=== PATIENT | female | born 1945 | race Caucasian/White ===

== ENCOUNTER 2021-05-25 12:12 | Outpatient (CLI) | payer MEDICARE | END 2021-05-25 12:13 | disposition home or self-care (01) | LOC: CSHMAMMO 12:12 | PROVIDERS: ATTEND Family Medicine | DX: Z12.31 Encounter for screening mammogram for malignant neoplasm of breast (principal); Z85.3 Personal history of malignant neoplasm of breast; Z98.890 Other specified postprocedural states | CPT/HCPCS: 77063; 77067 ==

== ENCOUNTER 2021-11-26 15:52 | Inpatient (IN) | payer MEDICARE, BC ==
[2021-11-26 16:56] LABS: #Basophils 0.2 10x3/uL (0.0-0.2); #Eosinphils 0.3 10x3/uL (0.0-0.5); #Monocytes 1.5 10x3/uL (0.0-1.1); #Neutrophils 12.5 10x3/uL (1.5-8.4); %Basophils 0.9 % (0.0-2.0); %Eosinophils 2.1 % (0.0-6.0); %Lymphocytes 9.8 % (18.0-47.0); %Monocytes 9.2 % (0.0-10.0); Hemoglobin 11.1 g/dL (12.0-15.5); Mean Corpuscular HGB CONC 32.2 g/dL (32.0-36.0); Mean Corpuscular Hemoglobin 29.4 pg (27.0-33.0); Mean Corpuscular Volume 91.5 fl (81.6-98.3); Mean Platelet Volume 12.1 fl (7.4-10.4); Platelet Count 346 10x3/uL (150-450); RBC Distribution Width 13.8 % (11.5-14.5); Red Blood Cell (RBC) Count 3.77 10x6/uL (3.90-5.03); White Blood Cell (WBC) Count 16.3 10x3/uL (3.5-10.5)
[2021-11-26 16:59] LABS: SARS-CoV-2 NAA Rapid Test Not Detected (NotDetected)
[2021-11-26 16:59] LABS: Bilirubin Neg (Negative); Blood, Urine Negative (Negative); Clarity Clear (Clear); Glucose, Urine (Dipstick) >=1000 mg/dL (Negative); Ketone, Urine 15 mg/dL (Negative); Leukocyte Negative (Negative); Nitrite Negative (Negative); Protein, Urine (Dipstick) Negative (Neg-Trace); Specific Gravity, Urine 1.005 (1.002-1.036); Urobilinogen Normal mg/dL (Less than 2)
[2021-11-26 17:11] LABS: ALT (SGPT) 46 U/L (8-55); AST (SGOT) 45 U/L (5-34); Albumin 3.6 g/dL (3.4-4.8); Alkaline Phosphatase 654 U/L (40-110); Anion Gap 21 mmol/L (10-20); BUN (Urea Nitrogen) 65 mg/dL (9.8-20.1); Bilirubin, Total 0.5 mg/dL (0.2-1.2); Calc. Creatinine Clearance 0 mL/min (70-130); Calcium 11.3 mg/dL (7.8-10.44); Carbon Dioxide 19 mmol/L (23-31); Chloride 85 mmol/L (98-107); Estimated GFR 30; Globulin 3.1 g/dL (2.4-3.5); Potassium 5.4 mmol/L (3.5-5.1); Protein, Total 6.7 g/dL (5.8-8.1); Sodium 120 mmol/L (136-145)
[2021-11-26 17:18] LABS: Glucose Greater than 800 mg/dL (83-110)
[2021-11-26 17:44] LABS: Lipase 67 U/L (8-78); Magnesium 1.9 mg/dL (1.6-2.6)
[2021-11-26] MEDS ORDERED: INSULIN REGULAR IN 0.9 % NACL 100 UNIT/100 ML BAG ONE (17:48)
[2021-11-26 17:52] LABS: Actual Bicarbonate (HCO3v) 23 mEq/L (22-28); Base Excess -2.8 mEq/L (-2.0 to +3.0); Calcium, Ionized (venous) 1.48 mmol/L (1.16-1.32); Chloride (VBG) 86 mmol/L (98-106); Hemoglobin (Hb) 12.1 g/dL (11.7-16.1); Potassium (VBG) 5.37 mmol/L (3.70-5.30); Puncture Site Other Site; RapidComm Collect By LAB TECH; pH (venous) 7.36 (7.32-7.43)
[2021-11-26 19:21] LABS: Glucose 738 mg/dL (83-110)
[2021-11-26] MEDS ORDERED: Ondansetron PF 4 MG/2 ML Vial IVP PRN (19:53)
[2021-11-26] MEDS ORDERED: Dextrose 50% Abboject 50 ML SYRINGE SLOW IVP PRN (19:53)
[2021-11-26] MEDS ORDERED: Dextrose 5% in Water 1,000 ML IV PRN (19:53)
[2021-11-26] MEDS ORDERED: Senokot S 8.6-50 MG TAB PO PRN (19:53)
[2021-11-26] MEDS ORDERED: Calcium Carbonate 500 MG ChewTAB PO PRN (19:53)
[2021-11-26] MEDS ORDERED: Acetaminophen 325 MG TAB PO PRN (19:53)
[2021-11-26] MEDS ORDERED: Zolpidem Tartrate 5 MG TAB PO PRN (19:53)
[2021-11-26] MEDS ORDERED: Guaifenesin DM 100-10/5 ML UDCUP PO PRN (19:53)
[2021-11-26 19:55] VITALS: BMI 24.8
[2021-11-26] MEDS ORDERED: Albuterol Sulfate 2.5 mg/3 ml Neb NEB PRN (20:00)
[2021-11-26] MEDS ORDERED: INSULIN REGULAR IN 0.9 % NACL 100 UNIT in Premix Bag 1 BAG IVPB SCH (20:00)
[2021-11-26] MEDS ORDERED: Lactated Ringer's 1,000 ML IV SCH (20:00)
[2021-11-26] MEDS ORDERED: Sodium Chloride 0.9% 1,000 ML IV SCH (20:15)
[2021-11-26 20:16] LABS: Phosphorus 2.2 mg/dL (2.3-4.7)
[2021-11-26 20:18] LABS: Anion Gap 20 mmol/L (10-20); BUN (Urea Nitrogen) 62 mg/dL (9.8-20.1); CK (CPK) 31 U/L (29-168); Calc. Creatinine Clearance 34 mL/min (70-130); Calcium 11.7 mg/dL (7.8-10.44); Carbon Dioxide 20 mmol/L (23-31); Chloride 91 mmol/L (98-107); Estimated GFR 37; Magnesium 1.9 mg/dL (1.6-2.6); Potassium 4.6 mmol/L (3.5-5.1); Sodium 126 mmol/L (136-145)
[2021-11-26 20:19] LABS: Glucose 720 mg/dL (83-110)
[2021-11-26] MEDS ORDERED: Amlodipine 5 MG TAB PO SCH (20:30)
[2021-11-26] MEDS ORDERED: Famotidine 20 MG TAB PO SCH (21:00)
[2021-11-26 21:12] LABS: Anion Gap 13 mmol/L (10-20); BUN (Urea Nitrogen) 55 mg/dL (9.8-20.1); CK (CPK) 29 U/L (29-168); Calc. Creatinine Clearance 41 mL/min (70-130); Calcium 11.2 mg/dL (7.8-10.44); Carbon Dioxide 23 mmol/L (23-31); Chloride 95 mmol/L (98-107); Estimated GFR 46; Glucose 542 mg/dL (83-110); Magnesium 1.7 mg/dL (1.6-2.6); Potassium 4.2 mmol/L (3.5-5.1); Sodium 127 mmol/L (136-145)
[2021-11-26] MEDS: Atorvastatin Calcium 10 MG TAB PO SCH (21:25)
[2021-11-26] MEDS ORDERED: Magnesium Sulfate/D5W 1 GM/100 ML BAG IVPB SCH (21:30)
[2021-11-26] MEDS ORDERED: Potassium Phosphate 30 MMOL in Sodium Chloride 0.9% 250 ML 250 ML IVPB SCH (21:30)
[2021-11-27 00:42] LABS: Anion Gap 16 mmol/L (10-20); BUN (Urea Nitrogen) 45 mg/dL (9.8-20.1); Calc. Creatinine Clearance 47 mL/min (70-130); Calcium 10.7 mg/dL (7.8-10.44); Carbon Dioxide 21 mmol/L (23-31); Chloride 99 mmol/L (98-107); Estimated GFR 54; Glucose 408 mg/dL (83-110); Potassium 4.4 mmol/L (3.5-5.1); Sodium 132 mmol/L (136-145)
[2021-11-27 05:33] LABS: #Basophils 0.1 10x3/uL (0.0-0.2); #Eosinphils 0.4 10x3/uL (0.0-0.5); #Monocytes 1.2 10x3/uL (0.0-1.1); #Neutrophils 10.2 10x3/uL (1.5-8.4); %Basophils 0.7 % (0.0-2.0); %Eosinophils 2.6 % (0.0-6.0); %Lymphocytes 12.4 % (18.0-47.0); %Neutrophils 74.9 % (40.0-75.0); Hemoglobin 9.9 g/dL (12.0-15.5); Mean Corpuscular HGB CONC 34.3 g/dL (32.0-36.0); Mean Corpuscular Hemoglobin 29.6 pg (27.0-33.0); Mean Corpuscular Volume 86.3 fl (81.6-98.3); Mean Platelet Volume 11.6 fl (7.4-10.4); Platelet Count 260 10x3/uL (150-450); RBC Distribution Width 13.2 % (11.5-14.5); Red Blood Cell (RBC) Count 3.35 10x6/uL (3.90-5.03); White Blood Cell (WBC) Count 13.6 10x3/uL (3.5-10.5)
[2021-11-27] MEDS: Levothyroxine Sodium 88 MCG TAB PO SCH (05:53)
[2021-11-27 06:03] LABS: Anion Gap 12 mmol/L (10-20); BUN (Urea Nitrogen) 38 mg/dL (9.8-20.1); Calc. Creatinine Clearance 48 mL/min (70-130); Calcium 10.2 mg/dL (7.8-10.44); Carbon Dioxide 22 mmol/L (23-31); Chloride 103 mmol/L (98-107); Estimated GFR 56; Glucose 392 mg/dL (83-110); Magnesium 1.9 mg/dL (1.6-2.6); Phosphorus 3.3 mg/dL (2.3-4.7); Potassium 4.3 mmol/L (3.5-5.1); Sodium 133 mmol/L (136-145)
[2021-11-27] MEDS: Amlodipine 5 MG TAB PO SCH (08:10)
[2021-11-27] MEDS: Pioglitazone HCl 15 MG TAB PO SCH (08:11)
[2021-11-27] MEDS: Enoxaparin Sodium 40 MG/0.4 ML SYRINGE SC SCH ×2 (08:11→08:45)
[2021-11-27] MEDS: Famotidine 20 MG TAB PO SCH (08:11)
[2021-11-27] MEDS: Alogliptin 6.25 MG TAB PO SCH (08:11)
[2021-11-27] MEDS: Sodium Chloride 0.9% 1,000 ML IV SCH ×2 (10:29→20:11)
[2021-11-27] MEDS: Mometasone/Formoterol 200/5 60 PUFF INH SCH ×2 (10:46→19:00)
[2021-11-27 13:00] LABS: Hemoglobin A1c Greater than 14.0 % (4.0-6.0)
[2021-11-27] MEDS ORDERED: Dextrose 50% Abboject 50 ML SYRINGE SLOW IVP PRN (15:54)
[2021-11-27] MEDS ORDERED: Dextrose 5% in Water 1,000 ML IV PRN (15:54)
[2021-11-27] MEDS: PARoxetine 20 MG TAB PO SCH (20:19)
[2021-11-27] MEDS: Atorvastatin Calcium 10 MG TAB PO SCH (20:19)
[2021-11-27] MEDS: HumaLOG 300 UNITS/3 ML VIAL SC PRN (20:23)
[2021-11-27] MEDS ORDERED: Lantus 1000 UNITS/10 ML VIAL SC SCH (21:00)
[2021-11-28] MEDS: HumaLOG 300 UNITS/3 ML VIAL SC PRN ×4 (06:16→21:15)
[2021-11-28] MEDS: Levothyroxine Sodium 88 MCG TAB PO SCH (06:16)
[2021-11-28 06:53] LABS: Anion Gap 13 mmol/L (10-20); BUN (Urea Nitrogen) 24 mg/dL (9.8-20.1); Calc. Creatinine Clearance 49 mL/min (70-130); Calcium 10.3 mg/dL (7.8-10.44); Carbon Dioxide 22 mmol/L (23-31); Chloride 102 mmol/L (98-107); Estimated GFR 57; Glucose 374 mg/dL (83-110); Potassium 4.7 mmol/L (3.5-5.1); Sodium 132 mmol/L (136-145)
[2021-11-28 06:55] LABS: #Basophils 0.1 10x3/uL (0.0-0.2); #Eosinphils 0.3 10x3/uL (0.0-0.5); #Monocytes 1.1 10x3/uL (0.0-1.1); #Neutrophils 7.7 10x3/uL (1.5-8.4); %Basophils 1.1 % (0.0-2.0); %Eosinophils 2.3 % (0.0-6.0); %Lymphocytes 16.8 % (18.0-47.0); %Monocytes 9.8 % (0.0-10.0); %Neutrophils 69.3 % (40.0-75.0); Hemoglobin 10.8 g/dL (12.0-15.5); Mean Corpuscular HGB CONC 33.9 g/dL (32.0-36.0); Mean Corpuscular Hemoglobin 29.7 pg (27.0-33.0); Mean Corpuscular Volume 87.6 fl (81.6-98.3); Mean Platelet Volume 11.6 fl (7.4-10.4); Platelet Count 244 10x3/uL (150-450); RBC Distribution Width 13.8 % (11.5-14.5); Red Blood Cell (RBC) Count 3.64 10x6/uL (3.90-5.03); White Blood Cell (WBC) Count 11.1 10x3/uL (3.5-10.5)
[2021-11-28] MEDS ORDERED: Insulin Regular 300 UNITS/3 ML VIAL IVP SCH (08:00)
[2021-11-28] MEDS: Mometasone/Formoterol 200/5 60 PUFF INH SCH (09:38)
[2021-11-28] MEDS: Pioglitazone HCl 15 MG TAB PO SCH (10:14)
[2021-11-28] MEDS: Alogliptin 6.25 MG TAB PO SCH (10:14)
[2021-11-28] MEDS: Amlodipine 5 MG TAB PO SCH (10:14)
[2021-11-28] MEDS: Famotidine 20 MG TAB PO SCH (10:15)
[2021-11-28] MEDS: Enoxaparin Sodium 40 MG/0.4 ML SYRINGE SC SCH (10:15)
[2021-11-28] MEDS: Sodium Chloride 0.9% 1,000 ML IV SCH ×2 (10:16→15:20)
[2021-11-28] MEDS: Atorvastatin Calcium 10 MG TAB PO SCH (20:02)
[2021-11-28] MEDS: PARoxetine 20 MG TAB PO SCH (20:02)
[2021-11-28] MEDS ORDERED: Lantus 1000 UNITS/10 ML VIAL SC SCH (21:00)
[2021-11-29 05:25] LABS: Anion Gap 12 mmol/L (10-20); BUN (Urea Nitrogen) 17 mg/dL (9.8-20.1); Calc. Creatinine Clearance 51 mL/min (70-130); Calcium 9.5 mg/dL (7.8-10.44); Carbon Dioxide 22 mmol/L (23-31); Chloride 107 mmol/L (98-107); Estimated GFR 61; Glucose 268 mg/dL (83-110); Magnesium 1.7 mg/dL (1.6-2.6); Potassium 4.3 mmol/L (3.5-5.1); Sodium 137 mmol/L (136-145)
[2021-11-29] MEDS: HumaLOG 300 UNITS/3 ML VIAL SC PRN ×4 (06:11→21:07)
[2021-11-29] MEDS: Levothyroxine Sodium 88 MCG TAB PO SCH (06:11)
[2021-11-29] MEDS: Sodium Chloride 0.9% 1,000 ML IV SCH ×2 (06:11→21:05)
[2021-11-29] MEDS: Mometasone/Formoterol 200/5 60 PUFF INH SCH ×2 (08:18→10:18)
[2021-11-29] MEDS: Enoxaparin Sodium 40 MG/0.4 ML SYRINGE SC SCH (09:16)
[2021-11-29] MEDS: Pioglitazone HCl 15 MG TAB PO SCH (09:16)
[2021-11-29] MEDS: Famotidine 20 MG TAB PO SCH (09:17)
[2021-11-29] MEDS: Amlodipine 5 MG TAB PO SCH (09:17)
[2021-11-29] MEDS: Alogliptin 6.25 MG TAB PO SCH (09:17)
[2021-11-29] MEDS ORDERED: Lantus 1000 UNITS/10 ML VIAL SC SCH (10:30)
[2021-11-29] MEDS: PARoxetine 20 MG TAB PO SCH (21:03)
[2021-11-29] MEDS: Atorvastatin Calcium 10 MG TAB PO SCH (21:03)
[2021-11-29] MEDS: Lantus 1000 UNITS/10 ML VIAL SC SCH (21:07)
[2021-11-30 05:44] LABS: Anion Gap 10 mmol/L (10-20); BUN (Urea Nitrogen) 14 mg/dL (9.8-20.1); Calc. Creatinine Clearance 58 mL/min (70-130); Carbon Dioxide 24 mmol/L (23-31); Chloride 107 mmol/L (98-107); Estimated GFR 70; Glucose 139 mg/dL (83-110); Potassium 3.8 mmol/L (3.5-5.1); Sodium 137 mmol/L (136-145)
[2021-11-30] MEDS: Levothyroxine Sodium 88 MCG TAB PO SCH (06:05)
[2021-11-30 07:41] VITALS: BP 150/67; TEMP 98.1
[2021-11-30] MEDS: Enoxaparin Sodium 40 MG/0.4 ML SYRINGE SC SCH (09:24)
[2021-11-30] MEDS: Pioglitazone HCl 15 MG TAB PO SCH (09:24)
[2021-11-30] MEDS: Amlodipine 5 MG TAB PO SCH (09:24)
[2021-11-30] MEDS: Alogliptin 6.25 MG TAB PO SCH (09:24)
[2021-11-30] MEDS: Lantus 1000 UNITS/10 ML VIAL SC SCH (09:25)
[2021-11-30] MEDS: Famotidine 20 MG TAB PO SCH (09:25)
[2021-11-30] MEDS: Sodium Chloride 0.9% 1,000 ML IV SCH (09:25)
[2021-11-30] MEDS: Mometasone/Formoterol 200/5 60 PUFF INH SCH (09:49)
== END 2021-11-30 12:53 | disposition home health service (06) | DRG 638 ==
LOC: CSHERS 15:52 → CSHIMCU 19:44 → CSHTELE 11-27 19:10
PROVIDERS: ADMIT Student in an Organized Health Care Education/Training Program; ATTEND Family Medicine
DX: E11.00 Type 2 diabetes mellitus with hyperosmolarity without nonketotic hyperglycemic-hyperosmolar coma (NKHHC) (principal); N17.9 Acute kidney failure, unspecified; E87.1 Hypo-osmolality and hyponatremia; E78.5 Hyperlipidemia, unspecified; E87.5 Hyperkalemia; D72.829 Elevated white blood cell count, unspecified; F41.9 Anxiety disorder, unspecified; F32.A Depression, unspecified; M19.90 Unspecified osteoarthritis, unspecified site; Z20.822 Contact with and (suspected) exposure to COVID-19; E86.0 Dehydration; N18.30 Chronic kidney disease, stage 3 unspecified; E11.22 Type 2 diabetes mellitus with diabetic chronic kidney disease; I12.9 Hypertensive chronic kidney disease with stage 1 through stage 4 chronic kidney disease, or unspecified chronic kidney disease; E03.9 Hypothyroidism, unspecified; J45.909 Unspecified asthma, uncomplicated; G47.00 Insomnia, unspecified; Z91.19 Patient's noncompliance with other medical treatment and regimen
CPT/HCPCS: 36415; 36416; 80048; 80053; 81003; 82550; 82805; 83036; 83605; 83690; 83735; 84100; 84443; 84484; 85025; 93005; 94760; 96365; 96366; J1650; J1815; J3475; J7050; U0002

== ENCOUNTER 2022-01-28 17:01 | Emergency (ER) | payer MEDICARE, BC ==
[~2022-01-28 17:01] MED LIST: Iopamidol 300 61% 100 ML VIAL FS ONE
[2022-01-28] MEDS ORDERED: Morphine 4 MG/ML VIAL ONE ×2 (17:46→18:40)
[2022-01-28] MEDS ORDERED: Ondansetron PF 4 MG/2 ML Vial ONE (17:47)
[2022-01-28 17:59] LABS: #Basophils 0.2 10x3/uL (0.0-0.2); #Eosinphils 0.6 10x3/uL (0.0-0.5); #Monocytes 1.6 10x3/uL (0.0-1.1); #Neutrophils 11.1 10x3/uL (1.5-8.4); %Eosinophils 3.9 % (0.0-6.0); %Lymphocytes 11.1 % (18.0-47.0); %Monocytes 10.2 % (0.0-10.0); Mean Corpuscular HGB CONC 31.9 g/dL (32.0-36.0); Mean Corpuscular Hemoglobin 29.4 pg (27.0-33.0); Mean Corpuscular Volume 92.2 fl (81.6-98.3); Mean Platelet Volume 11.2 fl (7.4-10.4); Platelet Count 354 10x3/uL (150-450); RBC Distribution Width 14.6 % (11.5-14.5); Red Blood Cell (RBC) Count 3.06 10x6/uL (3.90-5.03); White Blood Cell (WBC) Count 15.3 10x3/uL (3.5-10.5)
[2022-01-28 18:13] LABS: ALT (SGPT) 74 U/L (8-55); AST (SGOT) 88 U/L (5-34); Albumin 3.4 g/dL (3.4-4.8); Alkaline Phosphatase 509 U/L (40-110); Anion Gap 14 mmol/L (10-20); BUN (Urea Nitrogen) 29 mg/dL (9.8-20.1); Bilirubin, Total 4.1 mg/dL (0.2-1.2); Calc. Creatinine Clearance 0 mL/min (70-130); Calcium 9.6 mg/dL (7.8-10.44); Carbon Dioxide 20 mmol/L (23-31); Chloride 101 mmol/L (98-107); Estimated GFR 49; Globulin 3.3 g/dL (2.4-3.5); Glucose 346 mg/dL (83-110); Lipase 218 U/L (8-78); Potassium 5.1 mmol/L (3.5-5.1); Protein, Total 6.7 g/dL (5.8-8.1); Sodium 130 mmol/L (136-145)
[2022-01-28 20:35] LABS: Bilirubin Neg (Negative); Blood, Urine Negative (Negative); Clarity Clear (Clear); Glucose, Urine (Dipstick) 250 mg/dL (Negative); Ketone, Urine Negative (Negative); Leukocyte 25 (Negative); Nitrite Positive (Negative); Protein, Urine (Dipstick) 15 mg/dl (Neg-Trace); Specific Gravity, Urine 1.015 (1.005-1.030); Urobilinogen Normal mg/dL (Less than 2)
[2022-01-28 20:51] LABS: Bacteria/HPF 2+ HPF (None Seen); RBC/HPF 0-3 HPF (0-3); Transitional Epithelial 0-3 HPF (None Seen); WBC/HPF 0-3 HPF (0-3)
[2022-01-28 20:52] LABS: Calcium Oxalate Crystals 1+ HPF (None Seen)
[2022-01-28 21:12] LABS: SARS-CoV-2 NAA Rapid Test Not Detected (NotDetected)
[2022-01-28] MEDS ORDERED: cefTRIAXone\\ROCEPHIN 1 GM VIAL ONE (21:22)
[2022-01-28] MEDS ORDERED: Piperacillin/Tazobactam 4.5 GM VIAL ONE (22:45)
[2022-01-28] MEDS ORDERED: Lantus 1000 UNITS/10 ML VIAL SC SCH (23:45)
[2022-01-29 08:17] LABS: Hep C IgG Ab Non-Reactive (NonReactive); Hep C Index 0.09 S/CO (0-0.79)
[2022-01-29 08:18] LABS: Hep A IgM AB Non-Reactive (NonReactive)
[2022-01-29 08:19] LABS: HBCM Index 0.05 S/CO (0-0.79); Hepatitis B Core IgM Abs Non-Reactive (NonReactive)
[2022-01-29 09:20] LABS: Hep B Surf Ag Non-Reactive S/CO (NonReactive)
== END 2022-01-29 00:14 | disposition short-term general hospital (02) ==
LOC: CSHERS 17:01
DX: K80.50 Calculus of bile duct without cholangitis or cholecystitis without obstruction (principal); K86.9 Disease of pancreas, unspecified; R16.0 Hepatomegaly, not elsewhere classified; R91.8 Other nonspecific abnormal finding of lung field; N39.0 Urinary tract infection, site not specified; E11.9 Type 2 diabetes mellitus without complications; I10 Essential (primary) hypertension; E78.5 Hyperlipidemia, unspecified; E03.9 Hypothyroidism, unspecified
CPT/HCPCS: 74177; 76705; 80053; 80074; 82962; 83690; 85025; 87077; 87086; 87186; 94760; 96361; 96365; 96367; 96375; 96376; 99285; U0002; 36416; 81003; 81015; J0696; J1815; J2270; J2405; J2543; Q9967